=== PATIENT | male | born 1960 | race Caucasian/White ===

== ENCOUNTER → 2017-10-10 | Outpatient (CLI) | payer OTHER ==
[~2017-10-10] VITALS: Ht 167.6 cm; Wt 77.1 kg
[2017-10-10] VITALS (7 sets, daily range): BP systolic 86–130; BP diastolic 57–82
[~2017-10-10] MED LIST: ASPIR 8181 MG; FISH OIL 1,001000 M2; LIPITOR 20 MG T20 M1; METFORMIN HCL500 MG; PRINIVIL5 MG; VITAMIN D2000 UNIT
[2017-10-10 09:59] LABS: HEMATOCRIT 46.3 % (42.0-52.0); HEMOGLOBIN 15.4 gm/dL (14.0-18.0); MCH 29.7 pg (26.0-34.0); MCHC 33.3 g/dL (28.0-37.0); MCV 89.2 fL (80.0-100.0); MPV 7.6 fl. (7.2-11.1); RBC 5.19 mil/uL (4.50-6.00); RDW-CV 13.6 % (10.5-14.5); WBC 6.1 thou/uL (4.0-11.0)
[2017-10-10 10:08] LABS: APTT 27.5 Seconds (25.0-31.3); PROTIME 10.2 Seconds (9.20-11.50)
[2017-10-10 10:14] LABS: ALBUMIN 3.7 g/dL (3.4-5.0); ALKALINE PHOSPHATASE 77 U/L (46-116); ANION GAP 10 mmol/L (7-16); BUN 18 mg/dL (7-18); CALCIUM 8.8 mg/dL (8.5-10.1); CHLORIDE 107 mmol/L (98-107); CHOLESTEROL 158 mg/dL (<200); CO2 26 mmol/L (21-32); GLUCOSE 98 mg/dL (70-99); HDL CHOLESTEROL 41 mg/dL (>40); LDL CHOLESTEROL 101 mg/dL (<100); POTASSIUM 3.9 mmol/L (3.5-5.1); SERUM ASSESSMENT Clear; SGOT 23 U/L (15-37); SGPT 34 U/L (30-65); SODIUM 143 mmol/L (136-145); TC:HDL 3.9 Ratio (Not establshd); TOTAL BILIRUBIN 0.8 mg/dL (<0.1-1.0); TOTAL PROTEIN 7.5 g/dL (6.4-8.2); TRIGLYCERIDE 82 mg/dL (<150); VLDL 16 mg/dL (<40)
--- NOTE | 2017-10-10 10:40 | EKG ---
[place] [address] ELECTROCARDIOGRAM REPORT Name: BENNIE MCDOWELL Room: [facility]#: [id number] Admission: 10/10/17 Attend Phys: Daniele Agarwal MD, F Discharge: Date of : 62 Report #: [id number] THIS REPORT FOR: //name// [facility] Test Date: 2017-10-10 Test Time: 09:39:36 Pat Name: BENNIE MCDOWELL Department: Room: Gender: M [employer]: : 1960 Requested By: Daniele Agarwal Order Number: [id number] Ivet MD: Daniele Agarwal Measurements Intervals [place] Rate: 73 P: 52 MT: 138 QRS: 6 QRSD: 87 T: -3 QT: 373 QTc: 411 Interpretive Statements Sinus rhythm Abnormal R-wave progression, early transition Borderline T abnormalities, inferior leads No previous ECG available for comparison Electronically Signed On 10-10-2017 10:39:55 ACCOUNT EXECUTIVE TRAINEE by Daniele Agarwal [email or web address] <ELECTRONICALLY SIGNED> By: Daniele Agarwal MD, [facility] 10/10/17 1039 0939 8 Daniele Agarwal MD, FACC /EPI
--- NOTE | 2017-10-10 18:15 | CARD ---
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 The right wrist was infiltrated with 1% Lidocaine subcutaneous anesthesia. A 6 fr sheath was inserted into the right radial artery. Coronary angiography was performed using coronary diagnostic catheters. The right coronary system was accessed and visualized with a JR4 catheter. The left coronary system was accessed and visualized with a JL4 catheter. The left ventricle was accessed and visualized with a Diagnostic catheter. Left ventricular/Aortic Valve gradient assessed via catheter pullback. Left ventriculogram was performed in [place] projection. Closure device was deployed with a 6 Fr vascband. The patient tolerated the procedure well and there were no complications associated with the procedure. There was no hematoma. Intraoperative Conscious Sedation Sedation start time: 10:49 Case end Time: 11:13 [place] [address] CARDIAC CATH REPORT Name: BENNIE MCDOWELL Room: [facility]#: [id number] Admission: 10/10/17 Attend Phys: Daniele Agarwal MD, F Discharge: Date of : 62 Report #: [id number] Fentanyl 25 mcg Dose: 525.17 mGy Contrast Type and Amount: Visipaque 180 ml Coronary Angiography The patient's coronary anatomy is right dominant. [place] Artery Percent Stenosis Left Main: 0 % Prox LAD: 30 % Mid/Distal LAD: 30 % Circumflex: 0 % RCA: 0 % Ramus: % Left Ventriculography The left ventricle is normal in size with normal contractility. The left ventricular ejection fraction is estimated to be 60-65%. Left ventricular wall motion abnormalities are not present. There is no mitral insufficiency. Hemodynamics The aortic pressure is 111/82 mmHg with a mean of 96 mmHg. The left ventricular pressure is 119/1 mmHg with a mean of mmHg. The left ventricular end diastolic pressure is 20 mmHg. There was no gradient across the aortic valve upon pullback. Pullback from the left ventricle to the aorta revealed no gradient across the aortic valve. Conclusion 1. no significant cad 2. suspect noncardiac chest pain Recommendations Aggressive Medical Therapy <ELECTRONICALLY SIGNED> By: Daniele Agarwal MD, [facility] 10/10/171813 13 dewayne Agarwal MD, [facility] /INF
== END | disposition home or self-care (01) ==
LOC: M.CL 09:01
PROVIDERS: Internal Medicine Cardiovascular Disease
DX: R94.39 Abnormal result of other cardiovascular function study (principal); I10 Essential (primary) hypertension; R07.9 Chest pain, unspecified; E78.00 Pure hypercholesterolemia, unspecified; Z79.899 Other long term (current) drug therapy; Z79.82 Long term (current) use of aspirin; Z88.8 Allergy status to other drugs, medicaments and biological substances